=== PATIENT | female | born 1980 | race African-American/Black ===

== ENCOUNTER 2022-09-05 20:56 | Observation (INO) ==
[2022-09-05] MEDS ORDERED: NITROGLYCERIN 2% OINT 1 INCH/GM PACK TOP STA (23:03)
[2022-09-05] MEDS ORDERED: ONDANSETRON 4 MG/2 ML VIAL IV STA (23:03)
[2022-09-05] MEDS ORDERED: MORPHINE 2 MG/1 ML SYRINGE IV STA (23:03)
[2022-09-05] MEDS ORDERED: ASPIRIN 325 MG TABLET PO STA (23:03)
[2022-09-05 23:19] LABS: Basophils % 0.3 % (0.0-0.8); Eosinophils # 0.1 10*3/uL (0.0-0.87); Eosinophils % 1.2 % (0.00-10.9); Hematocrit 38.9 VOL% (35.7-47.0); Hemoglobin 12.6 GM/DL (12.0-16.0); Immature Granulocytes % 0.3 %; Immature Granulocytes Absolute 0.04 #; Lymphocytes % 41.9 % (21.3-54.2); Mean Corpuscular HGB Conc 32.4 GM/DL (32-36); Mean Corpuscular Volume 90.3 FL (87-102); Mean Platelet Volume 11.1 FL (9.6-12.0); Monocytes # 0.7 10*3/uL (0.11-0.8); Monocytes % 5.8 % (1.7-12.7); Neutrophils % 50.5 % (38.7-73.9); Platelet Count 290 T/CUMM (130-400); Red Blood Count 4.31 MC/CUMM (3.8-5.5); White Blood Count 11.9 T/CUMM (4-12)
[2022-09-06 00:41] LABS: Alanine Aminotransferase 20 U/L (13-56); Albumin 3.3 G/DL (3.4-5.0); Alkaline Phosphatase 88 U/L (45-117); Aspartate Amino Transferase 17 U/L (0-37); Bilirubin,Total < 0.39 MG/DL (0.20-1.00); Blood Urea Nitrogen 8 MG/DL (7-18); Calcium 9.2 MG/DL (8.5-10.1); Carbon Dioxide 29 MMOL/L (21-32); Chloride 108 MMOL/L (98-107); Glucose 147 MG/DL (74-106); Osmolality,Calculated 283.1 MOS/KG (273-304); Potassium 3.7 MMOL/L (3.5-5.1); Sodium 142 MMOL/L (136-145); Total Protein 7.4 G/DL (6.4-8.2)
[2022-09-06] MEDS ORDERED: ENOXAPARIN 100 MG/ML SYRINGE SUBCUT STA (00:55)
[2022-09-06] MEDS ORDERED: ENOXAPARIN 120 MG/0.8 ML SYRINGE SUBCUT STA (01:04)
[2022-09-06] MEDS ORDERED: GLUCAGON 1 MG VIAL IM PRN (01:05)
[2022-09-06] MEDS ORDERED: MORPHINE 2 MG/1 ML SYRINGE IV PRN (01:05)
[2022-09-06] MEDS ORDERED: DEXTROSE 10% 250 ML BAG IV PRN ×2 (01:05→09:26)
[2022-09-06] MEDS ORDERED: ONDANSETRON 4 MG/2 ML VIAL IV PRN (01:05)
[2022-09-06] MEDS ORDERED: ACETAMINOPHEN 325 MG TABLET PO PRN (01:05)
[2022-09-06] MEDS ORDERED: METHOCARBAMOL 500 MG TABLET PO PRN (01:10)
[2022-09-06 03:07] LABS: INR 0.9; PT Patient Result 9.6 SECS (10.1-12.1)
[2022-09-06 03:17] LABS: Calcium 8.8 MG/DL (8.5-10.1); Osmolality,Calculated 279.3 MOS/KG (273-304); Potassium 3.7 MMOL/L (3.5-5.1); Risk Ratio 3.04; VLDL Cholesterol 36.6 MG/DL
[2022-09-06 04:25] LABS: Basophils % 0.4 % (0.0-0.8); Eosinophils # 0.2 10*3/uL (0.0-0.87); Eosinophils % 1.6 % (0.00-10.9); Hematocrit 36.8 VOL% (35.7-47.0); Hemoglobin 11.8 GM/DL (12.0-16.0); Immature Granulocytes % 0.2 %; Immature Granulocytes Absolute 0.02 #; Lymphocytes # 4.8 10*3/uL (1.4-4.0); Lymphocytes % 46.2 % (21.3-54.2); Mean Corpuscular HGB Conc 32.1 GM/DL (32-36); Mean Corpuscular Volume 90.6 FL (87-102); Monocytes # 0.4 10*3/uL (0.11-0.8); Neutrophils % 47.6 % (38.7-73.9); Platelet Count 247 T/CUMM (130-400); Red Blood Count 4.06 MC/CUMM (3.8-5.5); Red Cell Distribution Width 15.1 % (9.3-17.3); White Blood Count 10.5 T/CUMM (4-12)
[2022-09-06] MEDS: INSULIN REGULAR 100 UNIT/ML SUBCUT SCH ×3 (07:20→11:34)
[2022-09-06] MEDS ORDERED: PANTOPRAZOLE 40 MG TABLET PO SCH (09:00)
[2022-09-06] MEDS ORDERED: LEFLUNOMIDE 10 MG TABLET PO SCH (09:00)
[2022-09-06] MEDS ORDERED: carvediloL 3.125 MG TABLET PO SCH (09:00)
[2022-09-06] MEDS ORDERED: amLODIPine 5 MG TABLET PO SCH (09:00)
[2022-09-06] MEDS ORDERED: hydroCHLOROthiazide 25 MG TABLET PO SCH (09:00)
[2022-09-06] MEDS ORDERED: lisinopriL 20 MG TABLET PO SCH (09:00)
[2022-09-06] MEDS: buPROPion XL 150 MG TABLET PO SCH ×2 (09:27→11:20)
[2022-09-06] MEDS: PARoxetine 20 MG TABLET PO SCH ×2 (09:28→11:20)
[2022-09-06 11:46] VITALS: BP 131/83
[2022-09-06] MEDS ORDERED: SIMVASTATIN 20 MG TABLET PO SCH (21:00)
[2022-09-07] MEDS ORDERED: ASPIRIN EC 325 MG TABLET PO SCH (09:00)
[2022-09-07] MEDS ORDERED: ENOXAPARIN 40 MG/0.4 ML SYRINGE SUBCUT SCH (09:00)
== END 2022-09-06 16:02 | disposition home or self-care (01) ==
LOC: N.EDINP 20:56 → N.ED 20:56 → N.TELES 09-06 08:16
PROVIDERS: ADMIT Internal Medicine; ATTEND Internal Medicine